=== PATIENT | male | born 1935 | race Two or more races ===

== ENCOUNTER 2017-08-09 18:43 | Inpatient (IN) | payer MEDICARE, OTHER ==
[~2017-08-09] VITALS: Ht 157.5 cm; Wt 88.9 kg
[~2017-08-09 18:43] MED LIST: ATOR10TA PO; BIMA2.5D5 EACHEYE; BISA5TAB10 PO; CHOL20004 PO; DESV100T PO; DEXT15DR6 EACHEYE; DOCU100C36 PO; ENOX40DI SQ; FENO134C PO; GUAI-177 PO; LEVO100T9 PO; MAGN400O6 PO; METO-357 PO; OLOP5DRO9 EACHEYE; TAMS-12 PO; TRAM50TA2 PO
[2017-08-09 19:00] LABS: BASOPHILS % (AUTO) 0.5 % (0.0-2.0); EOSINOPHILS # (AUTO) 0.1 /CMM (0.0-0.7); EOSINOPHILS % (AUTO) 2.1 % (0.0-6.0); HEMATOCRIT 41 % (39-51); HEMOGLOBIN 13.7 g/dL (13.5-17.5); LYMPHOCYTES % (AUTO) 34.7 % (20.0-44.0); MEAN CORPUSCULAR HEMOGLOBIN 29 PG (26.0-33.0); MEAN CORPUSCULAR HGB CONC 33 g/dl (31.0-36.0); MEAN CORPUSCULAR VOLUME 88 fL (80-96); MONOCYTES # (AUTO) 0.8 /CMM (0.1-1.30); NEUTROPHILS # (AUTO) 2.9 /CMM (1.8-8.9); NEUTROPHILS % (AUTO) 49.7 % (43.0-81.0); PLATELET COUNT (AUTO) 243 /CMM (150-450); RDW COEFFICIENT OF VARIATION 12.8 (11.5-15.0); RED BLOOD CELL COUNT(AUTO) 4.69 MIL/uL (4.5-6.0); WHITE BLOOD COUNT (AUTO) 5.8 K/uL (4.3-11.0)
--- NOTE | 2017-08-09 19:10 | NUR ---
REPORT RECEIVED FOR LALITHA LEE FOR OUSMANE.
[2017-08-09] MEDS ORDERED: ACET-907 PO (19:15)
[2017-08-09] MEDS ORDERED: FENO145T PO (19:15)
[2017-08-09] MEDS ORDERED: OLAN10TA3 PO (19:15)
[2017-08-09] MEDS ORDERED: OLAN5TAB3 PO (19:15)
[2017-08-09] MEDS ORDERED: FLUO5DRO3 EACHEYE (19:15)
[2017-08-09 19:17] LABS: ALANINE AMINOTRANSFERASE 32 U/L (12-78); ALBUMIN 3.3 g/dL (3.4-5.0); ALKALINE PHOSPHATASE 48 U/L (46-116); ASPARTATE AMINOTRANSFERASE 36 U/L (15-37); BILIRUBIN,DIRECT 0.1 mg/dL (0.0-0.2); BILIRUBIN,TOTAL 0.3 mg/dL (0.2-1.0); CALCIUM, SERUM 9.6 mg/dL (8.5-10.1); CARBON DIOXIDE 34 mmol/L (21-32); CHLORIDE 101 mmol/L (98-107); CREATININE 0.9 mg/dL (0.6-1.3); GLUCOSE 131 mg/dL (74-106); POTASSIUM 4.1 mmol/L (3.5-5.1); SODIUM SERUM 139 mmol/L (136-145); TOTAL PROTEIN, SERUM 7.6 g/dL (6.4-8.2); UREA NITROGEN, BLOOD 13 mg/dL (7-18)
[2017-08-09 19:34] LABS: TROPONIN I < 0.017 ng/mL (0.00-0.056)
--- NOTE | 2017-08-09 20:09 | NUR ---
PT TBA TELE 326-2.
--- NOTE | 2017-08-09 20:16 | NUR ---
REPORT GIVEN TO LALITHA WALKER FOR OUSMANE.
[2017-08-09] MEDS ORDERED: MAGNESIUM HYDROXIDE 30 ML UDC PO PRN (21:00)
[2017-08-09] MEDS ORDERED: BISACODYL (5 MG) 5 MG TABLET.DR PO PRN (21:00)
--- NOTE | 2017-08-09 21:11 | NUR ---
PT TRANSPORTED TO [facility] 326-2 VIA STRETCHER ON SANDING MACHINE BUFFER WITH RN, ACLS PROTOCOL. VSS.
[2017-08-09 21:20] VITALS: BP 135/83
[2017-08-09] MEDS ORDERED: ONDANSETRON HCL/PF 4 MG/2 ML VIAL IVP PRN (21:30)
[2017-08-09] MEDS ORDERED: IV NS 0.9% 1,000 ML IV PRN (21:30)
--- NOTE | 2017-08-09 22:05 | NUR ---
TELE/RN NOTES NEW ADMITTED PATIENT IS 82YO MALE FROM [facility] WHO CAME TO ER AFTER AN UNWITNESSED FALL CHIEF COMPLAINT THAT HE PASSED OUT, DX FOR SYNCOPE. ALERT, LORIENTEDX2, WEAK IN BUE AND BLE. DENIES PAIN AND REQUIRE REORIENTATION TO PLACE AND TIME. SKIN ASSED WITH NOTED REDNESS IN THE BACK AND BUTTOCKS. MD RECONCILED ORDERS, CARDIAC DIET, WITH PT ROCKY. TELE READING SR WITH PVS. BELONGINGS CHECKED. CALL LIGHTS WITHIN REACH BED ALARM ON. RESPIRATIONS EVEN AND UNLABORED, SKIN WARM TO TOUCH.
[2017-08-09 22:09] VITALS: BP 135/88
[2017-08-09] MEDS ORDERED: OLANZAPINE 10 MG TABLET ONE (23:02)
[2017-08-09] MEDS ORDERED: ATORVASTATIN 10 MG TABLET ONE (23:02)
[2017-08-09] MEDS: ATORVASTATIN 10 MG TABLET PO SCH (23:05)
[2017-08-09] MEDS: OLANZAPINE 10 MG TABLET PO SCH (23:05)
[2017-08-10 04:00] VITALS: BP 130/71
--- NOTE | 2017-08-10 06:33 | NUR ---
TELE/RN NOTES PATIETN REQUIREING REORIENTATION, AND STATED HE WANTS TO GO BACK TO [place]. INFORMED PATIENT MD WILL SEE HIM.ASSISTED TO BATHROOM 2 PERSON ASSIST IN WHEELCHAIR. RICHARD ENDORSE TO AM RN FOR OUSMANE.
[2017-08-10 06:41] LABS: BASOPHILS % (AUTO) 0.7 % (0.0-2.0); EOSINOPHILS # (AUTO) 0.1 /CMM (0.0-0.7); EOSINOPHILS % (AUTO) 2.3 % (0.0-6.0); HEMATOCRIT 39 % (39-51); HEMOGLOBIN 13.1 g/dL (13.5-17.5); LYMPHOCYTES # (AUTO) 1.5 /CMM (0.8-4.8); LYMPHOCYTES % (AUTO) 29.9 % (20.0-44.0); MEAN CORPUSCULAR HEMOGLOBIN 30 PG (26.0-33.0); MEAN CORPUSCULAR HGB CONC 33 g/dl (31.0-36.0); MEAN CORPUSCULAR VOLUME 90 fL (80-96); MONOCYTES # (AUTO) 0.6 /CMM (0.1-1.30); MONOCYTES % (AUTO) 12.9 % (2.0-12.0); NEUTROPHILS # (AUTO) 2.7 /CMM (1.8-8.9); NEUTROPHILS % (AUTO) 54.2 % (43.0-81.0); PLATELET COUNT (AUTO) 210 /CMM (150-450); RDW COEFFICIENT OF VARIATION 13.6 (11.5-15.0); RED BLOOD CELL COUNT(AUTO) 4.39 MIL/uL (4.5-6.0); WHITE BLOOD COUNT (AUTO) 4.9 K/uL (4.3-11.0)
--- NOTE | 2017-08-10 06:51 | NUR ---
326-2 PATIETN IN BED, ABLDE TO SLEP DURING THE NIGHT, REQUIRE FREQUENT REORIENTATION, , REMOVE OXYGEN NASALCANULA BY IFEOMA SAID HE I IS FEELING BETTER,SKIN CHECK FOR REDNESS, WILL CONTINUE TO MONITOR AND ENDORSE TO AM RN FOR OUSMANE.
--- NOTE | 2017-08-10 07:15 | NUR ---
RN NOTES PT IS SITTING IN THE HALLWAY AT THE NURSING STATION, NO SIGNS OF DISTRESS NOTED. PT ON RA, RESPIRATIONS ARE EVEN AND UNLABORED. IV ON R WRIST INTACT AND SL. SAFETY MEASURES ARE IN PLACE. WILL CONTINUE TO MONITOR.
[2017-08-10 07:23] LABS: CALCIUM, SERUM 9.3 mg/dL (8.5-10.1); CARBON DIOXIDE 33 mmol/L (21-32); CHLORIDE 102 mmol/L (98-107); CREATININE 0.7 mg/dL (0.6-1.3); GLUCOSE 102 mg/dL (74-106); MAGNESIUM 1.7 mg/dL (1.8-2.4); PHOSPHORUS 2.8 mg/dL (2.5-4.9); POTASSIUM 3.9 mmol/L (3.5-5.1); SODIUM SERUM 141 mmol/L (136-145); UREA NITROGEN, BLOOD 9 mg/dL (7-18)
[2017-08-10 08:00] VITALS: BP 149/73
[2017-08-10] MEDS: FLUOROMETHOLONE 0.25% EACHEYE SCH (09:00)
[2017-08-10] MEDS: CHOLECALCIFEROL 1,000 UNIT TABLET (VIT D3) PO SCH (09:14)
[2017-08-10] MEDS: TAMSULOSIN 0.4 MG CAP.SR.24H PO SCH (09:14)
[2017-08-10] MEDS: METOPROLOL TARTRATE 25 MG TABLET PO SCH ×2 (09:14→21:39)
[2017-08-10] MEDS: DOCUSATE SODIUM 100 MG CAPSULE PO SCH ×2 (09:14→16:14)
[2017-08-10] MEDS: OLANZAPINE 5 MG TABLET PO SCH (09:14)
[2017-08-10] MEDS: PANTOPRAZOLE 40 MG TABLET.DR PO SCH (09:14)
[2017-08-10] MEDS: FENOFIBRATE NANOCRYS (145 MG) 145 MG TABLET PO SCH (09:14)
[2017-08-10] MEDS: LEVOTHYROXINE SODIUM 100 MCG TABLET PO SCH (09:14)
[2017-08-10 09:18] LABS: THYROID STIMULATING HORMONE 0.848 uIU/mL (0.358-3.74)
[2017-08-10] MEDS: OLOPATADINE HCL 0.1% OPHTH BOTTLE EACHEYE SCH ×2 (10:00→16:14)
[2017-08-10 11:42] LABS: CHOLESTEROL 158 mg/dL (<200); HDL CHOLESTEROL 43 mg/dL (40-60); LDL 99 mg/dL (0-99); TRIGLYCERIDES 123 mg/dL (30-150)
[2017-08-10] MEDS: Magnesium 1GM/D5W 100ML PREMIX 100 ML IV SCH ×2 (12:23→14:15)
[2017-08-10] MEDS: POLYVINYL ALCOHOL 15 ML BOTTLE EACHEYE SCH ×3 (13:00→21:00)
[2017-08-10] MEDS ORDERED: QUETIAPINE FUMARATE 25 MG TABLET PO STA (13:14)
[2017-08-10 14:39] LABS: APPEARANCE,URINE CLEAR (CLEAR); BILIRUBIN,URINE NEGATIVE (NEGATIVE); BLOOD, URINE NEGATIVE Ery/uL (NEGATIVE); COLOR,URINE YELLOW (YELLOW); KETONES,URINE NEGATIVE (NEGATIVE); LEUKOCYTE ESTERASE ,URINE NEGATIVE (NEGATIVE); NITRITE, URINE NEGATIVE (NEGATIVE); PH,URINE 7.5 (5.0-8.0); PROTEIN,URINE NEGATIVE (NEGATIVE); UGLUCOSE NEGATIVE (NEGATIVE)
[2017-08-10 15:02] LABS: BACTERIA,URINE None seen /HPF (None Seen); RBC,URINE 0-2 /HPF (0-2); SQUAMOUS EPITHELIAL CELL,UR Few /HPF (None Seen); WBC,URINE 0-2 /HPF (0-3)
[2017-08-10 16:00] VITALS: BP 157/85
--- NOTE | 2017-08-10 18:29 | NUR ---
RN NOTES PT IS RESTING IN BED WITH NO SIGNS OF DISTRESS. PT ON RA, RESPIRATIONS ARE EVEN AND UNLABORED. SITTER IS AT BEDSIDE. IV ON R WRIST IS INTACT AND SL. PT NEEDS MET AND ALL MEDS GIVEN ORDERED. SAFETY MEASURES ARE IN PLACE, CALL LIGHT IS IN REACH. WILL ENDORSE TO BEREAVEMENT COUNSELOR RN FOR CONTINUITY OF CARE.
[2017-08-10 19:33] VITALS: BP_SYST 111; BP_SYST 119; BP_DIAS 52; BP_DIAS 67
[2017-08-10 19:38] VITALS: BP 111/67
[2017-08-10] MEDS: ATORVASTATIN 10 MG TABLET PO SCH (21:40)
[2017-08-10] MEDS: OLANZAPINE 10 MG TABLET PO SCH (21:40)
[2017-08-10 22:00] VITALS: BP 130/64
--- NOTE | 2017-08-11 00:56 | NUR ---
rN NOTES RECEIVED PT AWAKE, ALERT AND ORIENTED X2 WITH CONFUSION NOTED. ON ROOM AIR AND TOLERATED WELL. PT DENIES ANY PAIN AND DISCOMFORT. IV ACCESS ON RIGHT WRIST PATENT AND INTACT. SAFETY MEASURES AND FALL PRECAUTION IN PLACED WITH SITTER ST BEDSIDE. KEPT CLEAN AND DRY. PLAN OF CARE DISCUSSED WITH THE PT. WILL CONTINUE TO MONITOR.
--- NOTE | 2017-08-11 07:40 | NUR ---
RN NOTES PT IS SITTING IN BED, NO SIGNS OF DISTRESS NOTED. SITTER IS AT BEDSIDE. PT ON RA, RESPIRATIONS ARE EVEN AND UNLABORED. IV ON R WRIST INTACT AND PATENT. SAFETY MEASURES ARE IN PLACE, CALL LIGHT IS IN REACH. WILL CONTINUE TO MONITOR.
--- NOTE | 2017-08-11 07:41 | NUR ---
RN NOTES PT AWAKE MOST OF THE NIGHT, CONFUSED AND DISORIENTED. VITAL SIGNS STABLE. DENIES ANY PAIN AND DISCOMFORT. NO EPISODE OF NAUSEA AND VOMITING. ASSISTED TO THE BATHROOM WITH UNSTEADY GAIT. SAFETY MEASURES AND FALL PRECAUTION OBSERVED WITH SITTER AT BEDSIDE. WILL ENDORSE TO MORNING RN FOR CONTINUITY OF CARE.
[2017-08-11 07:47] LABS: BASOPHILS % (AUTO) 0.5 % (0.0-2.0); EOSINOPHILS % (AUTO) 0.7 % (0.0-6.0); HEMATOCRIT 43 % (39-51); HEMOGLOBIN 14.3 g/dL (13.5-17.5); LYMPHOCYTES # (AUTO) 1.3 /CMM (0.8-4.8); LYMPHOCYTES % (AUTO) 27.3 % (20.0-44.0); MEAN CORPUSCULAR HEMOGLOBIN 30 PG (26.0-33.0); MEAN CORPUSCULAR HGB CONC 34 g/dl (31.0-36.0); MEAN CORPUSCULAR VOLUME 89 fL (80-96); MONOCYTES # (AUTO) 0.4 /CMM (0.1-1.30); MONOCYTES % (AUTO) 7.6 % (2.0-12.0); NEUTROPHILS # (AUTO) 3.1 /CMM (1.8-8.9); NEUTROPHILS % (AUTO) 63.9 % (43.0-81.0); PLATELET COUNT (AUTO) 259 /CMM (150-450); RDW COEFFICIENT OF VARIATION 13.9 (11.5-15.0); RED BLOOD CELL COUNT(AUTO) 4.76 MIL/uL (4.5-6.0); WHITE BLOOD COUNT (AUTO) 4.9 K/uL (4.3-11.0)
[2017-08-11 08:00] VITALS: BP 167/109
[2017-08-11 08:04] LABS: CALCIUM, SERUM 9.8 mg/dL (8.5-10.1); CARBON DIOXIDE 31 mmol/L (21-32); CHLORIDE 102 mmol/L (98-107); CREATININE 0.9 mg/dL (0.6-1.3); GLUCOSE 145 mg/dL (74-106); MAGNESIUM 1.9 mg/dL (1.8-2.4); PHOSPHORUS 2.3 mg/dL (2.5-4.9); POTASSIUM 3.7 mmol/L (3.5-5.1); SODIUM SERUM 141 mmol/L (136-145); UREA NITROGEN, BLOOD 9 mg/dL (7-18)
[2017-08-11 08:30] VITALS: BP 167/109
[2017-08-11] MEDS: FENOFIBRATE NANOCRYS (145 MG) 145 MG TABLET PO SCH (08:30)
[2017-08-11] MEDS: LEVOTHYROXINE SODIUM 100 MCG TABLET PO SCH (08:30)
[2017-08-11] MEDS: TAMSULOSIN 0.4 MG CAP.SR.24H PO SCH (08:30)
[2017-08-11] MEDS: PANTOPRAZOLE 40 MG TABLET.DR PO SCH (08:30)
[2017-08-11] MEDS: CHOLECALCIFEROL 1,000 UNIT TABLET (VIT D3) PO SCH (08:30)
[2017-08-11] MEDS: DOCUSATE SODIUM 100 MG CAPSULE PO SCH (08:30)
[2017-08-11] MEDS: OLANZAPINE 5 MG TABLET PO SCH (08:30)
[2017-08-11] MEDS: METOPROLOL TARTRATE 25 MG TABLET PO SCH (08:30)
[2017-08-11] MEDS: FLUOROMETHOLONE 0.25% EACHEYE SCH (09:00)
[2017-08-11] MEDS ORDERED: NEUTRA PHOS 1 POWD.PACKET PO SCH (10:30)
[2017-08-11] MEDS: POLYVINYL ALCOHOL 15 ML BOTTLE EACHEYE SCH ×2 (10:53→11:47)
[2017-08-11] MEDS: OLOPATADINE HCL 0.1% OPHTH BOTTLE EACHEYE SCH (10:53)
[2017-08-11] MEDS ORDERED: QUETIAPINE FUMARATE 25 MG TABLET PO ONE (11:30)
--- NOTE | 2017-08-11 15:42 | NUR ---
RN NOTES PT WAS DISCHARGED TO [facility] IN STABLE CONDITION. EMT'S PICKED HIM UP BY AMBULANCE TO TRANSPORT. VITAL SIGNS ARE WNL, BP 138/73. IV AND ID BAND WERE REMOVED. PT REFUSED TO HAVE PHOTOS TAKEN OF SKIN. BELONGINGS WERE RETURNED TO PT AND DISCHARGE PAPERS WERE GIVEN TO FACILITY.
[2017-08-11] MEDS ORDERED: OLANZAPINE 5 MG TABLET PO SCH (22:00)
[2017-08-12] MEDS ORDERED: LORAZEPAM INJ 2 MG/ML VIAL ONE (20:34)
== END 2017-08-11 15:45 | DRG 73 ==
LOC: ER 18:45 → TELE 20:05 → MED 08-10 11:48
PROVIDERS: ADMIT Internal Medicine; ATTEND Internal Medicine
DX: G90.8 Other disorders of autonomic nervous system (principal); G93.41 Metabolic encephalopathy; E44.0 Moderate protein-calorie malnutrition; D68.59 Other primary thrombophilia; I48.0 Paroxysmal atrial fibrillation; E83.42 Hypomagnesemia; E83.39 Other disorders of phosphorus metabolism; E03.9 Hypothyroidism, unspecified; E66.9 Obesity, unspecified; W05.0XXA Fall from non-moving wheelchair, initial encounter; E78.5 Hyperlipidemia, unspecified; I25.10 Atherosclerotic heart disease of native coronary artery without angina pectoris; I10 Essential (primary) hypertension; N40.0 Benign prostatic hyperplasia without lower urinary tract symptoms; F31.9 Bipolar disorder, unspecified; G89.29 Other chronic pain; H40.9 Unspecified glaucoma; Z68.35 Body mass index [BMI] 35.0-35.9, adult; Z71.3 Dietary counseling and surveillance; Y93.9 Activity, unspecified; Y92.89 Other specified places as the place of occurrence of the external cause; F01.50 Vascular dementia, unspecified severity, without behavioral disturbance, psychotic disturbance, mood disturbance, and anxiety
CPT/HCPCS: 36415; 70450-TC; 71045-TC; 73501; 73560-TC; 80048-TC; 80061-TC; 80076-TC; 80305; 81000-TC; 82306; 83735-TC; 84100-TC; 84439-TC; 84443-TC; 84484-TC; 85025-TC; 87081-TC; 87086-TC; 93307-TC; A4606; J2060; J3475; J7030; Z7610

== ENCOUNTER 2017-10-22 10:31 | Emergency (ER) | payer MEDICARE, BC ==
[~2017-10-22] VITALS: Ht 162.6 cm; Wt 59.9 kg
[~2017-10-22 10:31] MED LIST changes: +ACET-907 PO; -ENOX40DI SQ; -FENO134C PO; +FENO145T PO; +FLUO5DRO3 EACHEYE; -GUAI-177 PO; +OLAN10TA3 PO; +OLAN5TAB3 PO; +OLOP5DRO15 EACHEYE; -OLOP5DRO9 EACHEYE; -TRAM50TA2 PO
--- NOTE | 2017-10-22 10:31 | NUR ---
BIB [facility],C/O LEFT UE PAIN AND SWELLING,DENIES TRAUMA.
[2017-10-22] MEDS ORDERED: LATA2.5D7 EACHEYE (10:53)
[2017-10-22] MEDS ORDERED: ACET-2605 PO (10:53)
[2017-10-22] MEDS ORDERED: TRIA15CR3 TP (10:53)
[2017-10-22] MEDS ORDERED: POLY15DR40 EACHEYE (10:53)
--- NOTE | 2017-10-22 11:14 | NUR ---
ADOPTION COUNSELOR AT BEDSIDE
[2017-10-22] MEDS ORDERED: ACETAMINOPHEN 325 MG TABLET PO ONE (11:30)
[2017-10-22] MEDS ORDERED: ACETAMINOPHEN 325 MG TABLET ONE (11:34)
--- NOTE | 2017-10-22 11:37 | NUR ---
PT BACK FROM CT
--- NOTE | 2017-10-22 12:20 | NUR ---
Patient discharged to home in stable condition. Written and verbal after care instructions given. Patient verbalizes understanding of instruction.
--- NOTE | 2017-10-22 12:25 | NUR ---
CALLED [facility] FOR TRANSPORT ETA OF 1300 WAS GIVEN. TRIP#[id number]
[2017-10-22 12:53] VITALS: BP 135/84
--- NOTE | 2017-10-22 12:53 | NUR ---
Patient discharged to home in stable condition. Written and verbal after care instructions given. Patient verbalizes understanding of instruction.
== END 2017-10-22 13:00 | disposition home or self-care (01) ==
LOC: ER 10:37
DX: M25.532 Pain in left wrist (principal); I10 Essential (primary) hypertension; E03.9 Hypothyroidism, unspecified; E78.5 Hyperlipidemia, unspecified; H40.9 Unspecified glaucoma; R51 Headache; W18.39XA Other fall on same level, initial encounter; Y93.89 Activity, other specified; Y92.89 Other specified places as the place of occurrence of the external cause; Y99.8 Other external cause status
CPT/HCPCS: 70450-TC; 71045-TC; 72125-TC; 72170-TC; 73110; 73130-TC; A4606; Z7610